=== PATIENT | female | born 1995 | race Caucasian/White ===

== ENCOUNTER 2017-10-27 10:48 | Emergency (ER) | payer BC ==
[2017-10-27 12:13] VITALS: BP 108/54
--- NOTE | 2017-10-27 12:55 | UC ---
Respiratory Complaint HPI - HPI Summary HPI Summary: Congestion, fever, myalgias for about two days. She is normally quite healthy. There is cough as well. Friend had strep throat. NO vomitingg. - History of Current Complaint Chief Complaint: UCRespiratory Stated Complaint: COUGH FEVER SORE THROAT Time Seen by Provider: 10/27/17 12:43 Hx Obtained From: Patient Hx Last Menstrual Period: 10/12/17 Onset/Duration: Gradual Onset, Lasting Days Timing: Constant Severity Initially: Moderate Severity Currently: Moderate Character: Cough: Nonproductive Aggravating Factors: Deep Breaths, Recumbent Position Alleviating Factors: Nothing Associated Signs And Symptoms: Positive: Fever, Chills, URI, Nasal Congestion. Negative: Hemoptysis, Calf Pain, Calf Swelling - Allergies/Home Medications Allergies/Adverse Reactions: Allergies Allergy/AdvReac Type Severity Reaction Status Date / Time No Known Allergies Allergy Verified 10/27/17 12:07 PMH/Surg Hx/FS Hx/Imm Hx Previously Healthy: Yes - Surgical History Surgical History: Yes Surgery Procedure, Year, and Place: RIGHT/LEFT SHOULDER - Family History Known Family History: Positive: Other - no related respiratory illness. - Social History Occupation: Employed Full-time Alcohol Use: Rare Substance Use Type: None Smoking Status (MU): Never Smoked Tobacco - Immunization History Most Recent Influenza Vaccination: no Vaccination Up to Date: Yes Review of Systems ENT: Sore Throat, Sinus Congestion Respiratory: Cough All Other Systems Reviewed And Are Negative: Yes Physical Exam Triage Information Reviewed: Yes Appearance: Well-Appearing, No Pain Distress, Well-Nourished Vital Signs: Initial Vital Signs Temp 97.8 F 10/27/17 12:08 Pulse 103 10/27/17 12:08 Resp 16 10/27/17 12:08 BP 108/54 10/27/17 12:08 Pulse Ox 99 10/27/17 12:08 Vital Signs Reviewed: Yes Eyes: Positive: Conjunctiva Clear. Negative: Conjunctiva Inflamed ENT: Positive: Pharyngeal erythema, Nasal congestion, TMs normal, Uvula midline. Negative: Hoarse voice, Sinus tenderness Neck: Positive: Supple, Nontender, No Lymphadenopathy Respiratory: Positive: Chest non-tender, Lungs clear, Normal breath sounds, No respiratory distress, No accessory muscle use. Negative: Respiratory distress, Decreased breath sounds, Accessory muscle use, Crackles, Rhonchi, Stridor Cardiovascular: Positive: No Murmur, Pulses Normal, Brisk Capillary Refill Abdomen Description: Positive: Nontender, No Organomegaly. Negative: Distended , Guarding Musculoskeletal: Positive: Strength Intact, ROM Intact, No Edema Neurological: Positive: Alert, Muscle Tone Normal. Negative: Fatigued Psychological: Positive: Age Appropriate Behavior Skin: Negative: rashes UC Diagnostic Evaluation - Laboratory O2 Sat by Pulse Oximetry: 99 Respiratory Course/Dx - Course Course Of Treatment: tamiflu and supportive care described in detail. She says there is no way she is . - Differential Dx/Diagnosis Provider Diagnoses: influenza. Discharge - Discharge Plan Condition: Good Disposition: HOME Prescriptions: Oseltamivir CAP* [Tamiflu CAP*] 75 mg PO BID #10 cap Patient Education Materials: Influenza (ED) Forms: *Work Release Referrals: Gera Lopez DO [Primary Care Provider] - If Needed
== END 2017-10-27 13:49 | disposition home or self-care (01) ==
LOC: UCCORT 10:48
DX: J11.1 Influenza due to unidentified influenza virus with other respiratory manifestations (principal)
CPT/HCPCS: 87502; 87651; 99212; G0463

== ENCOUNTER 2018-06-02 10:09 | Emergency (ER) | payer BC ==
[2018-06-02 10:24] VITALS: BP 102/57
--- NOTE | 2018-06-02 10:31 | UC ---
Eye Complaint HPI - HPI Summary HPI Summary: Patient presents with 5 days progressive redness and itching of her left eye. This morning patient woke up with yellow-green drainage. Patient states it itches. Mild burning. No fevers or chills. No lid edema. No sinus pressure ear pain or shortness throat. Patient usually drjx-gde-italapa eyedrops without relief 2 nights ago. Patient does not wear corrective lenses. Patient denies foreign body sensation. Patient denies trauma. 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 Patient's medications reviewed this visit. - History of Current Complaint Chief Complaint: UCEye Stated Complaint: LEFT EYE COMPLAINT Time Seen by Provider: 06/02/18 10:26 Hx Obtained From: Patient Hx Last Menstrual Period: 05/06/18 ?: No Onset/Duration: Gradual Onset Timing: Constant Severity Initially: Mild Severity Currently: Mild Pain Intensity: 2 - Allergies/Home Medications Allergies/Adverse Reactions: Allergies Allergy/AdvReac Type Severity Reaction Status Date / Time No Known Allergies Allergy Verified 06/02/18 10:20 PMH/Surg Hx/FS Hx/Imm Hx Previously Healthy: Yes - Surgical History Surgical History: Yes Surgery Procedure, Year, and Place: RIGHT/LEFT SHOULDER - Family History Known Family History: Positive: Other - no related respiratory illness. - Social History Occupation: Employed Full-time, Student Lives: With Family Alcohol Use: Rare Substance Use Type: None Smoking Status (MU): Never Smoked Tobacco - Immunization History Most Recent Influenza Vaccination: no Most Recent Tetanus Shot: UTD Vaccination Up to Date: Yes Review of Systems Constitutional: Negative Eyes: Eye Redness All Other Systems Reviewed And Are Negative: Yes Physical Exam - Summary Physical Exam Summary: Vital Signs Reviewed: Yes A+Ox3, no distress Eyes: Conjunctiva Clear [place], EOM intact and full + injection right eye yellow crust drainage left eye scleral inflammed no photophobia visual acuity reviewed ENT: Hearing grossly normal TM x 2 clear mmoist no exudate, no erythema neck: supple Respiratory: Positive: No respiratory distress, No accessory muscle use Cardiovascular: skin color reflect adequate perfusion Musculoskeletal Exam: ANGUIANO x 4 without difficulty Neurological: Positive: Alert, ambulatory without difficulty Psychological: Positive: Normal Response To Family Skin: Positive: no rash, no ecchymosis Triage Information Reviewed: Yes Vital Signs: Initial Vital Signs Temp 98.1 F 08/05/18 10:20 Pulse 72 06/02/18 10:20 Resp 16 06/02/18 10:20 BP 102/57 06/02/18 10:20 Pulse Ox 99 06/02/18 10:20 Eye Complaint Course/Dx - Course Course Of Treatment: Pt with 5 days progressive left eye reddness, now with drainaage. VSS. injected conjunctiva and sclera. no lid edema. polytrim. warm soak. hygeine. return precautions - Differential Dx/Diagnosis Provider Diagnoses: conjunctivitis Discharge - Sign-Out/Discharge Documenting (check all that apply): Patient Departure - Discharge Plan Condition: Stable Disposition: HOME Prescriptions: Polymyx/Trimethoprim OPTH* [Polytrim OPHTH*] 2 drop BOTH EYES Q6HR #1 btl Patient Education Materials: Conjunctivitis (ED) Referrals: Elayne Varner PA [Primary Care Provider] - Additional Instructions: - Use eye drops as prescribed - apply warm, wet soaks to your eye 3 times a day. do not share cloth between eyes - Wash your hands thoroughly and frequently - try not to rub your eyes - wear sunglasses as needed for light sensitivity - if you develop vision changes, swelling of the lid, pain with movement of eye or any other concerns it is recommended you are re-evaluated - Billing Disposition and Condition Condition: STABLE Disposition: Home
== END 2018-06-02 10:49 | disposition home or self-care (01) ==
LOC: UCCORT 10:09
DX: H10.9 Unspecified conjunctivitis (principal)
CPT/HCPCS: 99212; G0463